=== PATIENT | female | born 1970 | race Caucasian/White ===

== ENCOUNTER 2016-12-21 06:14 | Emergency (ER) | payer OTHER ==
[2016-12-21] MEDS ORDERED: Sodium Chloride 0.9% 1000 ML 1,000 ML IV SCH (06:15)
--- NOTE | 2016-12-21 06:24 | ERPHSYRPT ---
- History of Present Illness Time Seen by Provider: 12/21/16 06:17 Source: patient Exam Limitations: no limitations Physician History: SINCE 3 AM PT STARTED WITH DULL/ACHY LOWER MID CHEST PAIN & PRESSURE WITH NAUSEA , SHORTNESS OF AIR AND DIAPHORESIS. PT ALSO C/O A RUNNY NOSE FOR THE PAST WEEK. Allergies/Adverse Reactions: codeine Allergy (Intermediate, Verified 12/21/16 06:16) Tightness in Chest sulfamethoxazole [From Bactrim] Allergy (Intermediate, Verified 12/21/16 06:16) Rash trimethoprim [From Bactrim] Allergy (Intermediate, Verified 12/21/16 06:16) Rash Home Medications: Metoprolol Tartrate 100 mg PO BID 12/21/16 [History] - Review of Systems Constitutional: No Fever Ears, Nose, & Throat: Nose Discharge Respiratory: Dyspnea Cardiac: Chest Pain Abdominal/Gastrointestinal: Nausea Endocrine: Excessive Sweating All Other Systems: Reviewed and Negative - Nursing Vital Signs Nursing Vital Signs: Initial Vital Signs Temperature 97.9 F Temperature Source Oral Pulse Rate 75 Respiratory Rate 16 Blood Pressure [] 103/52 Pain Intensity 4 - Physical Exam General Appearance: alert, anxiety Eye Exam: PERRL/EOMI Ears, Nose, Throat Exam: moist mucous membranes Neck Exam: normal inspection Respiratory Exam: lungs clear Cardiovascular Exam: normal heart sounds Gastrointestinal/Abdomen Exam: soft, normal bowel sounds Back Exam: normal range of motion Extremity Exam: normal range of motion Neurologic Exam: alert, cooperative, No normal mood/affect (ANXIOUS) Skin Exam: warm, dry SpO2 Interpretation: normal SpO2: 100 Oxygen Delivery: Room Air - Course Nursing assessment & vital signs reviewed: Yes EKG Interpreted by Me: RATE ([id number]), Sinus Rhythm, NORMAL AXIS, NORMAL INTERVALS - Radiology Exams Chest X-ray Interpretation: Interpreted by me, No Pneumonia Ordered Tests: Active Orders 24 hr Category Date Time Status Speech/Language Therapist STAT Care 12/21/16 06:15 Active EKG-ER Only STAT Care 12/21/16 06:15 Active IV Insertion STAT Care 12/21/16 06:15 Active Oxygen-ED Only NASAL CANNULA 2 lpm Care 12/21/16 06:15 Active Pulse Oximetry (ED) STAT Care 12/21/16 06:15 Active CHEST 1 VIEW (PORTABLE) Stat Exams 12/21/16 06:16 Taken AMYLASE Stat Lab 12/21/16 06:39 Completed CBC W DIFF Stat Lab 12/21/16 06:39 Completed CMP Stat Lab 12/21/16 06:39 Completed LIPASE Stat Lab 12/21/16 06:39 Completed MAGNESIUM Stat Lab 12/21/16 06:39 Completed TROPONIN Q3H Lab 12/21/16 06:39 Completed TROPONIN Q3H Lab 12/21/16 09:30 Ordered TROPONIN Q3H Lab 12/21/16 12:30 Ordered TROPONIN Q3H Lab 12/21/16 15:30 Ordered TROPONIN Q3H Lab 12/21/16 18:30 Ordered Transfer Order Routine Transfer 12/21/16 07:26 Ordered Medication Summary Generic Name Dose Route Start Last Admin Trade Name Freq PRN Reason Stop Dose Admin Sodium Chloride 1,000 mls @ 100 mls/hr 12/21/16 06:15 12/21/16 06:30 Sodium Chloride 0.9% 1000 Ml IV 01/20/17 06:14 100 mls/hr .Q10H SKYLER Administration Magnesium Sulfate/Dextrose 100 mls @ 200 mls/hr 12/21/16 07:24 Magnesium 1 Gm / 100 Ml D5w IV 12/21/16 07:53 STAT ONE Potassium Chloride 100 mls @ 50 mls/hr 12/21/16 07:23 12/21/16 07:36 Potassium Chloride 20 Meq In Water 100ml IV 12/21/16 09:22 50 mls/hr STAT ONE Administration Discontinued Medications Generic Name Dose Route Start Last Admin Trade Name Jessy PRN Reason Stop Dose Admin Aspirin 324 mg 12/21/16 07:22 12/21/16 07:35 Baby Aspirin 81 Mg Chew PO 12/21/16 07:23 324 mg STAT ONE Administration Aspirin Confirm 12/21/16 07:34 Baby Aspirin 81 Mg Chew Administered 12/21/16 07:35 Dose 324 mg .ROUTE .STK-MED ONE Diazepam 10 mg 12/21/16 06:57 12/21/16 07:01 Valium 5 Mg PO 12/21/16 06:58 10 mg STAT ONE Administration Diazepam Confirm 12/21/16 07:00 Valium 5 Mg Administered 12/21/16 07:01 Dose 10 mg .ROUTE .STK-MED ONE Sodium Chloride Confirm 12/21/16 06:27 Sodium Chloride 0.9% 1000 Ml Administered 12/21/16 06:28 Dose 1,000 mls @ ud .ROUTE .STK-MED ONE Magnesium Sulfate/Dextrose Confirm 12/21/16 07:34 Magnesium 1 Gm / 100 Ml D5w Administered 12/21/16 07:35 Dose 100 mls @ ud IV .STK-MED ONE Potassium Chloride Confirm 12/21/16 07:35 Potassium Chloride 20 Meq In Water 100ml Administered 12/21/16 07:36 Dose 100 mls @ ud IV .STK-MED ONE Nitroglycerin 0.4 mg 12/21/16 06:56 12/21/16 07:01 Nitrostat 0.4 Mg (Ed) SL 12/21/16 06:57 0.4 mg STAT ONE Administration Nitroglycerin Confirm 12/21/16 06:59 Nitrostat 0.4 Mg (Ed) Administered 12/21/16 07:00 Dose 0.4 mg SL .STK-MED ONE Lab/Rad Data: Laboratory Result Diagrams 12/21/16 06:39 12/21/16 06:39 Laboratory Results 12/21/16 12/21/16 12/21/16 Range/Units 06:39 06:39 06:39 WBC 9.8 (4.0-10.5) K/mm3 RBC 4.67 (4.1-5.4) M/mm3 Hgb 11.6 L (12.0-16.0) gm/dl Hct 35.8 (35-47) % MCV 76.7 L (78-100) fl MCH 24.8 L (26-32) pg MCHC 32.4 (32-36) g/dl RDW 17.8 H (11.5-14.0) % Plt Count 228 (150-450) K/mm3 MPV 11.0 H (6-9.5) fl Gran % 68.3 H (36.0-66.0) % Lymphocytes % 23.7 L (24.0-44.0) % Monocytes % 7.1 (0.0-12.0) % Eosinophils % 0.5 (0.00-5.0) % Basophils % 0.4 (0.0-0.4) % Basophils # 0.04 (0-0.4) Sodium 138 (136-145) mEq/L Potassium 3.0 L* (3.5-5.1) mEq/L Chloride 101 (98-107) mEq/L Carbon Dioxide 26.2 (21-32) mEq/L Anion Gap 13.3 (5-15) MEQ/L BUN 24 H (9-20) mg/dL Creatinine 1.05 (0.55-1.30) mg/dl Estimated GFR > 60 ML/MIN Glucose 115 H (70-110) MG/DL Calcium 8.1 L (8.5-10.1) mg/dL Magnesium 1.6 L (1.8-2.4) mg/dL Total Bilirubin 0.2 (0.2-1.0) mg/dL AST 20 (15-37) U/L ALT 11 L (12-78) U/L Alkaline Phosphatase 62 (46-116) U/L Troponin I 0.031 (0.000-0.056) ng/ml Serum Total Protein 6.4 (6.4-8.2) gm/dL Albumin 3.1 L (3.4-5.0) g/dL Amylase 51 (25-115) U/L Lipase 173 (73-393) U/L - Progress Discussed with : Other (SPOKE WITH DR VALDEZ(HOSPITALIST AT [facility]) ([id number]) WHO ACCEPTED PT FOR TRANSFER TO [facility] A DIRECT ADMISSION.) - Departure Time of Disposition: 07:56 Departure Disposition: Transfer ([facility]) Clinical Impression: CHEST PAIN, HYPOKALEMIA, HYPOMAGNESEMIA, HTN Condition: Fair Critical Care Time: No Referrals: AVIS CACERES [ACTIVE STAFF] -
[2016-12-21] MEDS ORDERED: Sodium Chloride 0.9% 1000 ML 1,000 ML ONE (06:27)
[2016-12-21] MEDS ORDERED: Nitrostat 0.4 MG (ED) SL ONE ×2 (06:56→06:59)
[2016-12-21 06:57] LABS: BASOPHIL % 0.4 % (0.0-0.4); Eosinophil % 0.5 % (0.00-5.0); Granulocytes % 68.3 % (36.0-66.0); Lymphocytes % 23.7 % (24.0-44.0); Mean Cell Volume 76.7 fl (78-100); Mean Corpuscular Hemoglobin 24.8 pg (26-32); Monocytes % 7.1 % (0.0-12.0); Platelet Count 228 K/mm3 (150-450); Red Blood Count 4.67 M/mm3 (4.1-5.4); Red Cell Distribution Width 17.8 % (11.5-14.0); White Blood Count 9.8 K/mm3 (4.0-10.5)
[2016-12-21] MEDS ORDERED: Valium 5 MG PO ONE (06:57)
[2016-12-21] MEDS ORDERED: Valium 5 MG ONE (07:00)
[2016-12-21 07:06] LABS: ALBUMIN 3.1 g/dL (3.4-5.0); ALKALINE PHOSPHATASE 62 U/L (46-116); ANION GAP 13.3 MEQ/L (5-15); BILIRUBIN,TOTAL 0.2 mg/dL (0.2-1.0); BLOOD UREA NITROGEN 24 mg/dL (9-20); CHLORIDE 101 mEq/L (98-107); Carbon Dioxide 26.2 mEq/L (21-32); Glucose 115 MG/DL (70-110); LIPASE 173 U/L (73-393); MAGNESIUM 1.6 mg/dL (1.8-2.4); SGOT/AST 20 U/L (15-37); SGPT/ALT 11 U/L (12-78); SODIUM 138 mEq/L (136-145); Total Protein 6.4 gm/dL (6.4-8.2)
[2016-12-21] MEDS ORDERED: BABY ASPIRIN 81 MG CHEW PO ONE (07:22)
[2016-12-21] MEDS ORDERED: POTASSIUM CHLORIDE 20 mEq IN WATER 100ML 100 ML IV ONE ×2 (07:23→07:35)
[2016-12-21] MEDS ORDERED: Magnesium 1 Gm / 100 Ml D5W*** 100 ML IV ONE ×2 (07:24→07:34)
[2016-12-21] MEDS ORDERED: BABY ASPIRIN 81 MG CHEW ONE (07:34)
[2016-12-21] MEDS ORDERED: MORPHINE SULFATE 4 MG INJ IV ONE (07:56)
[2016-12-21] MEDS ORDERED: Phenergan 25 MG INJ IV ONE (07:56)
[2016-12-21] MEDS ORDERED: MORPHINE SULFATE 4 MG INJ ONE (08:01)
[2016-12-21] MEDS ORDERED: Phenergan 25 MG INJ ONE (08:01)
[2016-12-21 09:03] VITALS: BP 111/68; PULSE 78; O2SAT 98
--- NOTE | 2016-12-21 09:19 | XRAY ---
Indication: Short of breath. Comparison: None Portable chest clear. Heart is not enlarged. Bony thorax intact. Impression: Nonacute chest.
== END 2016-12-21 09:02 | disposition short-term general hospital (02) ==
LOC: ED 06:14
DX: R07.89 Other chest pain (principal); E87.6 Hypokalemia; E83.42 Hypomagnesemia; I10 Essential (primary) hypertension
CPT/HCPCS: 36415; 71010; 80053; 82150; 83690; 83735; 84484; 85025; 93005; 93041; 96360; 96361; 96365; 96366; 96374; 96375; 99285; J2270; J2550; J3475; J3480